=== PATIENT | male | born 1945 | race Caucasian/White ===

== ENCOUNTER → 2017-04-27 | Outpatient (CLI) | payer OTHER ==
[~2017-04-27] MED LIST: GADOBUTROL 10 ML VIAL IVP ONE
== END ==
LOC: FIMAGING 08:00
DX: N40.0 Benign prostatic hyperplasia without lower urinary tract symptoms (principal); N32.3 Diverticulum of bladder
CPT/HCPCS: 72197; 76377; A9585

== ENCOUNTER 2018-02-04 09:39 | Observation (INO) | payer OTHER ==
[2018-02-04] MEDS ORDERED: LR 1,000 ML IV ONE (12:30)
[2018-02-04] MEDS ORDERED: CLINDAMYCIN 900 MG/DEXTROSE 50 ML IV ONE (13:30)
--- NOTE | 2018-02-04 13:31 | PDHPUP ---
History & Physical Update H&P update statement: This history and physical update is based on an assessment of the patient which was completed after admission or registration (within 24 hours), but prior to the surgery/procedure. H&P update: H&P reviewed & patient examined, no change in patient's condition since H&P completed
[2018-02-04] MEDS ORDERED: fentaNYL 100 MCG/2 ML INJ ONE ×3 (13:53→15:38)
[2018-02-04] MEDS ORDERED: ROCURONIUM 50 MG/5 ML VIAL ONE (13:54)
[2018-02-04] MEDS ORDERED: LIDOCAINE 2% 100 MG/5 ML SYR ONE (13:54)
[2018-02-04] MEDS ORDERED: PROPOFOL 200 MG/20 ML VIAL ONE (13:54)
[2018-02-04] MEDS ORDERED: NEOSTIGMINE METHYLSULFATE 5 MG/5 ML SYR ONE (14:39)
[2018-02-04] MEDS ORDERED: GLYCOPYRROLATE 0.2 MG/1 ML VIAL ONE ×2 (14:39)
[2018-02-04] MEDS ORDERED: ALBUTEROL 3 ML DEYVIAL IH PRN (15:11)
[2018-02-04] MEDS ORDERED: ONDANSETRON 4 MG/2 ML VIAL IVP PRN ×2 (15:11→15:21)
[2018-02-04] MEDS ORDERED: NALOXONE HCL 0.4 MG/ML INJ IVP PRN (15:11)
--- NOTE | 2018-02-04 15:13 | POSTANESTH ---
Post Anesthetic Evaluation Cardiovascular Status: Similar to Pre-Op Cond Respiratory Status: Similar to Pre-op Cond. Level of Consciousness/Mental Status: Mildly Sleepy, Arousable Pain Control: Adequate, Prn Tx Ordered Nausea/Vomiting Control: Adequate, Prn Tx Ordered Complications Possibly Related to Anesthesia: None Noted
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
[2018-02-04] MEDS ORDERED: OPIUM/BELLADONNA ALKALO SUPP PR PRN (15:20)
[2018-02-04] MEDS ORDERED: HYDROCODONE/APAP 5/325 TAB PO PRN (15:20)
--- NOTE | 2018-02-04 15:20 | POSTOPPROG ---
Post Op Note Date of Operation: 02/04/18 Surgeon: Jelani Dumas Anesthesiologist: Zuri Anesthesia: LMA Pre-op Diagnosis: bph Procedure: turp Inf/Abcess present in the surg proc area at time of surgery?: No EBL: 50-100 Drains: Other (ledezma) Specimen(s): sent--dictated
[2018-02-04] MEDS ORDERED: ACETAMINOPHEN 325 MG TAB PO PRN (15:21)
[2018-02-04] MEDS ORDERED: ONDANSETRON DISINTEGRATING 4 MG TAB PO PRN (15:21)
[2018-02-04] MEDS ORDERED: ZOLPIDEM TARTRATE 5 MG TAB PO PRN (15:21)
[2018-02-04] MEDS ORDERED: traMADol 50 MG TAB PO PRN (15:23)
[2018-02-04] MEDS ORDERED: NAPHAZOLINE HCL/PHENIR 15 ML OPHT.BTL OP PRN (15:23)
--- NOTE | 2018-02-04 15:24 | GOP ---
[f rep st] OPERATIVE REPORT DATE OF OPERATION: 02/04/2018 SURGEON: Jelani Dumas MD ANESTHESIOLOGIST: Zuri provided general anesthesia. PREOPERATIVE DIAGNOSIS: 1. BPH. 2. Urinary obstruction. POSTOPERATIVE DIAGNOSIS: 1. BPH. 2. Urinary obstruction. PROCEDURE PERFORMED: Transurethral resection of the prostate. FINDINGS: BPH DESCRIPTION OF PROCEDURE: After undergoing general anesthesia and being prepped and draped in normal sterile fashion, there was an appropriate timeout. Scope was passed into the bladder and he had +4 trabeculation of the bladder. Small stones were identified and removed, and then at that point the TUR was begun, taking down the intravesical lobe of the prostate, the right lateral lobe and right portion of the posterior lobe. Hemostasis via cauterization. Left lateral lobe and left portion of the posterior lobe resected in a similar fashion. At the end the procedure, his bladder was Elliked free of all chips and clots, there were no visualized chips remaining, bladder was intact, verumontanum preserved, ureteral orifices preserved, and external sphincter approximated in the midline symmetrically. At that point, the scope was removed , 22 three-way catheter with 90 cc balloon inflated, traction placed, irrigated clear. He will be admitted for postoperative care. Pathology sent for specimen analysis, and I will discuss the issues with the patient's friend. /[id number]/MODL MTDD
[2018-02-04] MEDS: fentaNYL 100 MCG/2 ML INJ IVP PRN ×2 (15:44→16:00)
[2018-02-04] MEDS: POTASSIUM Cl (KCl) 10 MEQ in D5W 1/2 NS 1,000 ML IV SCH (17:07)
[2018-02-04] MEDS: OXYCODONE/APAP 5/325 TAB PO PRN ×3 (18:31→23:04)
[2018-02-04] MEDS ORDERED: traZODone 50 MG TAB PO SCH (21:00)
[2018-02-05] MEDS: POTASSIUM Cl (KCl) 10 MEQ in D5W 1/2 NS 1,000 ML IV SCH (02:25)
[2018-02-05] MEDS: OXYCODONE/APAP 5/325 TAB PO PRN (08:02)
[2018-02-05] MEDS ORDERED: Herbals/Supplements -Info Only PO SCH (09:00)
--- NOTE | 2018-02-05 10:08 | SOAPPROG ---
SOAP Progress Note Assessment/Plan: Assessment: BPH loc w urin obs/LUTS Acute POD 1, dc ledezma and if voiding plan dc, path pending Plan: as outlined 02/05/18 10:07 Subjective: doing well Objective: Vital Signs Temp Pulse Resp BP Pulse Ox 36.3 C 66 17 95/64 L 95 02/05/18 08:16 02/05/18 08:16 02/05/18 08:16 02/05/18 08:16 02/05/18 08:16 02/04/18 02/05/18 02/06/18 05:59 05:59 05:59 Intake Total 2737 Output Total 1200 2130 Balance 1537 -2130 Physical Exam - Physical Exam General Appearance: alert Respiratory: No respiratory distress Cardiac/Chest: regular rate, rhythm Abdomen: soft Skin: warm/dry Neuro/Psych: alert, oriented x 3 ICD10 Worksheet Patient Problems: Problems Problem Status Onset BPH loc w urin obs/LUTS Acute - ICD10 Problem Qualifiers (1) BPH loc w urin obs/LUTS
--- NOTE | 2018-02-05 10:33 | ASMTCMCOM ---
CM Note CM Note Notes: CM reviewed chart for D/C planning. Pt is a 72y/o male who had surgery yesterday for a transurethral resection of the prostate. He lives independently at home. CM will follow for changes. D/C Plan: TBD Date Signed: 02/05/2018 10:33 AM Electronically Signed By:Tamra Judge
--- NOTE | 2018-02-05 10:42 | ASMTDCNOTE ---
Case Management Discharge Discharge Order Complete? Answers: Yes Patient to Obtain Answers: Independently Medications Transportation Arranged Answers: Family/Friends Family Notified Answers: Yes Discharge Comments Notes: Pt D/C ing home indepedently due to no identified CM needs. Date Signed: 02/05/2018 10:42 AM Electronically Signed By:Tamra Judge
--- NOTE | 2018-02-05 10:43 | ASMTLACE ---
LACE Length of stay for Answers: Less than 1 day current admission Acuity / Level of Answers: No Care: Did the patient have an inpatient admission? Comorbidities - select Answers: Opioid dependence all that apply / Chronic pain # of Emergency department Answers: 0 visits in the last 6 months Social determinants Answers: Mental health diagnosis (anxiety, depression, pers onality disorders, etc.) Score: 7 Date Signed: 02/05/2018 10:42 AM Electronically Signed By:Tamra Judge
[2018-02-05 11:53] VITALS: BP 102/59
--- NOTE | 2018-02-06 11:08 | GDS ---
[f rep st] DISCHARGE SUMMARY ADMISSION DIAGNOSES: Benign prostatic hypertrophy with urinary obstruction. DISCHARGE DIAGNOSIS: Benign prostatic hypertrophy with urinary obstruction. PROCEDURE DURING HOSPITALIZATION: Transurethral resection of prostate. COMPLICATIONS: None. HOSPITAL COURSE: The gentleman was an a.m. admission, had the above procedure performed, discharged postop day 1. Pathology is benign. He has been discharged home, voiding well. Will have followup w shannon laughlin in 3 weeks. /[id number]/MODL
== END 2018-02-05 13:29 | disposition home or self-care (01) ==
LOC: F1N 12:07 → INTOOBSV 12:07 → F1N 16:27
PROVIDERS: ADMIT Specialist; ATTEND Specialist
PROC: 0VB08ZZ Excision of Prostate, Via Natural or Artificial Opening Endoscopic (ICD-10-PCS; principal; 2018-02-04 13:30)
DX: N40.1 Benign prostatic hyperplasia with lower urinary tract symptoms (principal)
CPT/HCPCS: 52601; 88305; G0378; J2001; J2704; J2710; J3010; J3480

== ENCOUNTER → 2018-04-15 | Outpatient (CLI) | payer OTHER | LOC: SUPIMAGING 15:29 | PROVIDERS: ATTEND Family Medicine | DX: M51.36 Other intervertebral disc degeneration, lumbar region (principal) | CPT/HCPCS: 72072-PN ==